=== PATIENT | female | born 1970 | race Two or more races ===

== ENCOUNTER 2022-06-20 07:48 | Emergency (ER) | payer OTHER ==
[~2022-06-20] VITALS: Ht 167.6 cm; Wt 81.2 kg
[2022-06-20] MEDS ORDERED: MAXALT10 MG PO (07:59)
[2022-06-20] MEDS ORDERED: IBU800 MG PO (08:00)
== END 2022-06-20 12:01 | disposition home or self-care (01) ==
LOC: ER 07:48
DX: T78.40XA Allergy, unspecified, initial encounter (principal); G43.909 Migraine, unspecified, not intractable, without status migrainosus; Z91.040 Latex allergy status